=== PATIENT | female | born 1965 | race Caucasian/White ===

== ENCOUNTER 2018-07-06 07:36 | Emergency (ER) | payer MEDICARE, MEDICAID ==
[2018-07-06] MEDS ORDERED: HYDROMORPHONE HCL INJ/PF 2 MG/ML AMPULE IM ONE (10:01)
--- NOTE | 2018-07-06 11:08 | ER Document Report ---
ED General - General Chief Complaint: Post Surgical Pain Stated Complaint: LEG PAIN Time Seen by Provider: 07/06/18 08:29 Primary Care Provider: TOMAS DELGADO PA-C [Primary Care Provider] - Follow up as needed TRAVEL OUTSIDE OF THE [place] IN LAST 30 DAYS: No - HPI Notes: Patient is a 53-year-old female, 8 days post left tibial fracture with napoleon placement, who presents to the emergency department for evaluation. She states she is at increased pain. She states her splint seems to be getting loose. She is concerned that it is not fitting well and not immobilizing her leg correctly. She denies any new injury. She has been nonweightbearing. She has a follow-up with her surgeon in a few weeks. No fevers or chills. No nausea or vomiting. No chest pain or difficulty breathing. She has a history of neuropathy, has been prescribed oxycodone for her pain. She states is only helping minimally. - Related Data Allergies/Adverse Reactions: No Known Allergies Allergy (Verified 07/06/18 07:37) Past Medical History - General Information source: Patient - Social History Smoking Status: Never Smoker Chew tobacco use (# tins/day): No Frequency of alcohol use: None Drug Abuse: None Family History: Reviewed & Not Pertinent - Father is Patient has suicidal ideation: No Patient has homicidal ideation: No Renal/ Medical History: Denies: Hx Peritoneal Dialysis Musculoskeletal Medical History: Reports Hx Muscle Weakness - Has been on a long list of medicines for muscle weakness and neuropathy Psychiatric Medical History: Reports: Hx Anxiety Past Surgical History: Reports: Hx Section, Hx Hysterectomy, Hx Orthopedic Surgery - ORIF Left leg, Hx Tubal Ligation - Immunizations Hx Diphtheria, Pertussis, Tetanus Vaccination: Yes Review of Systems - Review of Systems Constitutional: No symptoms reported EENT: No symptoms reported Cardiovascular: No symptoms reported Respiratory: No symptoms reported Gastrointestinal: No symptoms reported Genitourinary: No symptoms reported Musculoskeletal: See HPI Skin: No symptoms reported Hematologic/Lymphatic: No symptoms reported Neurological/Psychological: No symptoms reported Physical Exam - Vital signs Vitals: Temp Pulse Resp BP Pulse Ox 98.1 F 106 H 16 118/79 96 07/06/18 07:40 07/06/18 07:40 07/06/18 07:40 07/06/18 07:40 07/06/18 07:40 - Notes Notes: Vital signs reviewed, please refer to chart. Head is normocephalic, atraumatic. Pupils equal round, reactive to light. Neck is supple without meningismus. Heart is regular rate and rhythm. Lungs are clear to auscultation bilaterally. Abdomen is soft, nontender, normoactive bowel sounds throughout. Examination of the left lower extremity yields a large, polyester batting in plaster OCL to the left lower leg. Capillary refill of the toes is brisk. Upon taking down the OCL, it is noted that patient has well approximated, stapled surgical wounds, over the inferior patella and a medial left distal leg. She does have a 7 mm wound noted, most consistent with abrasion, over the distal anterior brewer. Dorsalis pedis and posterior tibial pulses are 2+. Minimal edema noted, no posterior calf tenderness. Course - Re-evaluation Re-evalutation: 07/06/18 11:12 Patient presents to the emergency department for evaluation. In the absence of any sort of new trauma or injury, I do not see any reason to reimage this leg. It appears to be healing appropriately, wounds look clean and dry. Her wounds were fully cleansed, redressed with iodoform, and the patient was placed in a new posterior OCL. She was neurovascularly intact following. Patient was medicated here with IM Dilaudid. I told her she needs to continue to take the oxycodone as directed. She is also to make her surgeon aware of her symptoms and the change in OCL here today. She voiced understanding to this. Otherwise she is to return to the emergency department with worsening or new concerning symptoms. - Vital Signs Vital signs: Temp Pulse Resp BP Pulse Ox 98.7 F 96 16 108/66 95 07/06/18 11:14 07/06/18 11:14 07/06/18 11:14 07/06/18 11:14 07/06/18 11:14 Discharge - Discharge Clinical Impression: Tibia fracture Qualifiers: Encounter type: sequela Fracture type: closed Laterality: left Condition: Stable Disposition: HOME, SELF-CARE Instructions: Splint Pending Casting ([facility]) Additional Instructions: Continue nonweightbearing and instructions as told previously by orthopedic surgeon. Contact them tomorrow, notify them of the splint change, changes in your condition. Follow-up as scheduled. Return to the emergency department with worsening or new concerning symptoms of any sort. Referrals: TOMAS DELGADO PA-C [Primary Care Provider] - Follow up as needed
[2018-07-06 11:16] VITALS: BP 108/66
== END 2018-07-06 11:15 | disposition home or self-care (01) ==
LOC: ER 07:36
DX: M79.606 Pain in leg, unspecified (principal); Z98.890 Other specified postprocedural states
CPT/HCPCS: 99283; 96372; 29515; J1170

== ENCOUNTER → 2018-08-13 | Outpatient (CLI) | payer MEDICARE, MEDICAID ==
--- NOTE | 2018-08-13 13:57 | WOMENS IMAGING REPORT ---
EXAM DESCRIPTION: BONE DENSITY HIP/SPINE COMPLETED DATE/TIME: 08/13/2018 1:46 pm REASON FOR STUDY: Z12.31 ROUTINE BILATERAL SCREENING,M81.0 AGE RELATED OSTEOPOROSIS WITHOUT C Z12.31 ENCNTR SCREEN MAMMOGRAM FOR MALIGNANT NEOPLASM OF MARA S82.202S UNSPECIFIED FRACTURE OF SHAFT OF LE FT TIBIA, SEQUEL M81.0 AGE-RELATED OSTEOPOROSIS W/O CURRENT PATHOLOGICAL FRAC COMPARISON: None. TECHNIQUE: Dual-Energy X-ray Absorptiometry (DEXA) of the AP Spine and Hip. LIMITATIONS: None. FINDINGS: LUMBAR SPINE: The bone mineral density (BMD) measured from L1-L4 in the AP projection correlates with a T-score of -0.1, which is normal as defined by the World Health Organization. HIP: The bone mineral density (BMD) measured in the left hip correlates with a T-score of -1.5, which is o steopenia as defined by the World Health Organization. IMPRESSION: 1. LUMBAR SPINE: NORMAL. 2. HIP: OSTEOPENIA. COMMENT: The World Health Organization defines low BMD as follows: T-score: Normal: Greater than -1.0 Osteopenia: Between -1.0 and -2.5 Osteoporosis: Less than -2.5 without fractures Established osteoporosis: Less than -2.5 with fractures In general, you may wish to consider: Diagnosis Treatment Follow-up DEXA Normal BMD Prevention 2-3 years Osteopenia Prevention/Therapy 1-2 years Osteoporosis Therapy Yearly TECHNICAL DOCUMENTATION: JOB ID: [id number] [employer]- All Rights Reserved Reading location - IP/workstation name: [email or web address]
--- NOTE | 2018-08-13 13:59 | WOMENS IMAGING REPORT ---
EXAM DESCRIPTION: BILAT SCREENING MAMMO W/CAD COMPLETED DATE/TIME: 08/13/2018 1:46 pm REASON FOR STUDY: Z12.31 ROUTINE BILATERAL SCREENING,M81.0 AGE RELATED OSTEOPOROSIS WITHOUT C Z12.31 ENCNTR SCREEN MAMMOGRAM FOR MALIGNANT NEOPLASM OF MARA S82.202S UNSPECIFIED FRACTURE OF SHAFT OF LE FT TIBIA, SEQUEL M81.0 AGE-RELATED OSTEOPOROSIS W/O CURRENT PATHOLOGICAL FRAC COMPARISON: None. EXAM PARAMETERS: Standard craniocaudal and mediolateral oblique views of each breast recorded using digital acquisition. Read with the assistance of CAD. .[facility] - R2 Final Inspection Supervisor Version 9.2 LIMITATIONS: None. FINDINGS: Findings present which are benign by mammographic criteria. No suspicious masses, calcifi cations or architectural distortion. Pertinent benign findings: A few benign-appearing calcifications in the right breast. Benign mammographic findings may include one or more of the following: Smooth masses, popcorn/rim/co arse calcifications, asymmetries, post-procedure changes, and lesions with long-standing stability. IMPRESSION: BENIGN MAMMOGRAPHIC FINDINGS. BIRADS 2 BREAST DENSITY: c. The breasts are heterogeneously dense, which may obscure small masses. BIRAD: ASSESSMENT: 2 BENIGN FINDING(S) RECOMMENDATION: ROUTINE SCREENING COMMENT: The patient has been notified of the results by letter per MQSA requirements. Additional no tification policies are in place for contacting patient with suspicious or incomplete findings. Quality ID #[id number]: The [employer] recommends an annual screening mammogram for women aged 40 years or over. This facility utilizes a reminder system to ensure that all patients receive reminder letters, and/or direct phone calls for appointments. This includes reminders for routine scr eening mammograms, diagnostic mammograms, or other Breast Imaging Interventions when appropriate. Th is patient will be placed in the appropriate reminder system. TECHNICAL DOCUMENTATION: FINDING NUMBER: (1) ASSESSMENT: (1) JOB ID: [id number] [employer]- All Rights Reserved Reading location - IP/workstation name: [email or web address]
== END ==
LOC: WI 13:07
PROVIDERS: ATTEND Nurse Practitioner Family
DX: Z12.31 Encounter for screening mammogram for malignant neoplasm of breast (principal); M81.0 Age-related osteoporosis without current pathological fracture
CPT/HCPCS: 77067; 77080